=== PATIENT | female | born 1985 | race Hispanic/Latino ===

== ENCOUNTER 2017-11-03 16:50 | Emergency (ER) | payer OTHER ==
[2017-11-03 18:02] LABS: ALT (SGPT) 21 U/L (8-55); AST (SGOT) 16 U/L (5-34); Albumin 4.1 g/dL (3.5-5.0); Alkaline Phosphatase 77 U/L (40-150); Anion Gap 15 mmol/L (10-20); BUN (Urea Nitrogen) 10 mg/dL (7.0-18.7); Bilirubin, Total 0.3 mg/dL (0.2-1.2); Calc. Creatinine Clearance 0 mL/min (70-130); Calcium 9.7 mg/dL (7.8-10.44); Carbon Dioxide 25 mmol/L (22-29); Chloride 100 mmol/L (98-107); Estimated GFR-MDRD Greater than 90; Globulin 3.7 g/dL (2.4-3.5); Glucose 247 mg/dL (70-105); Potassium 3.9 mmol/L (3.5-5.1); Protein, Total 7.8 g/dL (6.0-8.3); Sodium 136 mmol/L (136-145)
[2017-11-03 18:12] LABS: #Basophils 0.1 thou/uL (0.0-0.2); #Eosinphils 0.1 thou/uL (0.0-0.7); #Lymphocytes 2.2 thou/uL (1.20-3.40); #Monocytes 0.5 thou/uL (0.11-0.59); #Neutrophils 4.7 thou/uL (1.40-6.50); %Basophils 0.9 % (0.0-1.0); %Eosinophils 1.8 % (0.0-10.0); %Lymphocytes 28.8 % (21.0-51.0); %Neutrophils 62.4 % (42.0-75.0); Hemoglobin 13.6 g/dL (12.0-16.0); Large Platelets SLIGHT; MDiff Complete? YES; Mean Corpuscular Hemoglobin 26.3 pg (27.0-31.0); Mean Corpuscular Volume 82.3 fl (81.0-99.0); Mean Platelet Volume 12.8 fL (7.4-10.4); PLT Morphology Comment Appears Adequate; Platelet Count 205 thou/uL (130-400); RBC Distribution Width 12.5 % (11.5-14.5); RBC Morphology Normal; Red Blood Cell (RBC) Count 5.15 mill/uL (4.20-5.40); White Blood Cell (WBC) Count 7.5 thou/uL (4.8-10.8)
== END 2017-11-03 18:22 | disposition home or self-care (01) ==
LOC: SCSER 16:50
DX: L03.811 Cellulitis of head [any part, except face] (principal); R59.0 Localized enlarged lymph nodes; E11.9 Type 2 diabetes mellitus without complications; Z79.84 Long term (current) use of oral hypoglycemic drugs
CPT/HCPCS: 80053; 85025; 99283

== ENCOUNTER 2018-02-03 07:52 | Emergency (ER) | payer OTHER ==
[2018-02-03] MEDS ORDERED: Ondansetron HCl/PF 4 MG/2 ML Vial ONE (08:07)
[2018-02-03 08:27] LABS: #Eosinphils 0.1 thou/uL (0.0-0.7); #Lymphocytes 0.9 thou/uL (1.20-3.40); #Monocytes 0.5 thou/uL (0.11-0.59); #Neutrophils 9.6 thou/uL (1.40-6.50); %Basophils 0.3 % (0.0-1.0); %Eosinophils 0.5 % (0.0-10.0); %Lymphocytes 8.5 % (21.0-51.0); %Monocytes 4.7 % (0.0-10.0); %Neutrophils 86.1 % (42.0-75.0); Hemoglobin 13.7 g/dL (12.0-16.0); Mean Corpuscular HGB CONC 32.5 g/dL (32.0-36.0); Mean Corpuscular Hemoglobin 27.2 pg (27.0-31.0); Mean Corpuscular Volume 83.7 fl (81.0-99.0); Platelet Count 166 thou/uL (130-400); Red Blood Cell (RBC) Count 5.03 mill/uL (4.20-5.40); White Blood Cell (WBC) Count 11.1 thou/uL (4.8-10.8)
[2018-02-03 08:34] LABS: ALT (SGPT) 23 U/L (8-55); AST (SGOT) 18 U/L (5-34); Alkaline Phosphatase 75 U/L (40-150); Anion Gap 13 mmol/L (10-20); BUN (Urea Nitrogen) 15 mg/dL (7.0-18.7); Bilirubin, Total 0.4 mg/dL (0.2-1.2); Calc. Creatinine Clearance 0 mL/min (70-130); Carbon Dioxide 23 mmol/L (22-29); Chloride 105 mmol/L (98-107); Estimated GFR-MDRD Greater than 90; Globulin 3.6 g/dL (2.4-3.5); Glucose 162 mg/dL (70-105); Lipase 22 U/L (8-78); Potassium 3.8 mmol/L (3.5-5.1); Protein, Total 7.6 g/dL (6.0-8.3); Sodium 137 mmol/L (136-145)
[2018-02-03 09:09] LABS: Pregnancy Test - Urine (BHCG) Negative (Negative); Pregu Control Background? CLEAR/WHITE (CLR/WHITE); Pregu Control Bar Appear? YES (CONTROL BAR); Specific Gravity 1.015 (1.002-1.036)
[2018-02-03 09:32] LABS: Bilirubin Negative (Negative); Blood, Urine Negative (Negative); Clarity Clear (Clear); Glucose, Urine (Dipstick) Negative (Negative); Leukocyte Negative (Negative); Nitrite Negative (Negative); Protein, Urine (Dipstick) 30 mg/dL (Neg-Trace); Specific Gravity, Urine 1.015 (1.005-1.030); Urobilinogen 0.2 mg/dL (0.2-1.0); pH, Urine 7.5 (5.0-9.0)
[2018-02-03 09:35] LABS: RBC/HPF 0-3 HPF (0-3); Squamous Epithelial 0-3 HPF (0-3); WBC/HPF 0-3 HPF (0-3)
[2018-02-03 09:36] LABS: Bacteria/HPF None Seen HPF (None Seen)
== END 2018-02-03 09:38 | disposition home or self-care (01) ==
LOC: SCSER 07:52
DX: R11.2 Nausea with vomiting, unspecified (principal); R19.7 Diarrhea, unspecified; E11.9 Type 2 diabetes mellitus without complications; Z79.84 Long term (current) use of oral hypoglycemic drugs
CPT/HCPCS: 36416; 80053; 81001; 81025; 83690; 85025; 96361; 96374; J2405

== ENCOUNTER 2018-04-15 08:46 | Outpatient (CLI) | payer OTHER ==
--- NOTE | 2018-04-15 10:32 | MRI ---
MRI CERVICAL SPINE WITHOUT CONTRAST: Date: 04/15/18 HISTORY: Cervical radiculopathy. COMPARISON: None. TECHNIQUE: Cervical spine MRI is performed without contrast. Multisequential, multiplanar imaging is performed. FINDINGS: There is T1 marrow signal and hypointensity of the cervical vertebra. Correlate for anemia or marrow infiltrative process. Intrinsic T1 and T2 hyperintensity with associated STIR hyperintensity at C5, c ompatible with a hemangioma. Incompletely evaluated left Level II lymph nodes, best demonstrated on t he sagittal images. Visualized brain parenchyma, cervicomedullary junction, cervical cord, and the upper thoracic cord mckeon ve a normal size and signal intensity. No significant STIR hyperintensity to suggest vertebral body edema or ligamentous injury. C2-C3: No significant disc osteophyte complex. No significant central canal stenosis. Neural foramina are pa tent bilaterally. C3-C4: No significant disc osteophyte complex. No significant central canal stenosis. Degenerative changes o f the right uncovertebral joint results in mild right foraminal narrowing. Left neural foramen is pat ent. C4-C5: There is a central/left and right subarticular disc osteophyte complex. Ventral subarachnoid space is effaced. There is moderate central canal stenosis. No abnormal signal intensity in the cord. There i s cord deformity. Mild right foraminal narrowing due to degenerative change of the uncovertebral join t. Left neural foramen is patent. C5-C6: There is a central/left paracentral disc osteophyte complex with resultant moderate to severe central canal stenosis. Deformity of the left hemicord, without obvious T2 hyperintensity in the cord. Mild right foraminal narrowing due to degenerative change of the uncovertebral joint. Minimal left foramin al narrowing due to degenerative change of the uncovertebral joint. C6-C7: There is a central disc osteophyte complex that abuts the thecal sac. There is mild central canal fredrick nosis. Neural foramina are patent bilaterally. C7-T1: No significant disc osteophyte complex. No significant central canal stenosis. Neural foramina are pa tent. IMPRESSION: 1. Moderate to severe central canal stenosis at C5-C6. Moderate central canal stenosis at C4-C5. The re is associated cord deformity without abnormal signal intensity in the cord. 2. Varying degrees of foraminal stenosis as above. 3. Nonspecific, enlarged left Level II lymph nodes. Nonemergent postcontrast soft tissue neck CT is recommended. 4. T1 marrow signal hypointensity. Correlate for anemia or a marrow infiltrative process. CODE T. POS: [facility]
== END 2018-04-15 08:47 | disposition home or self-care (01) ==
LOC: MRI 08:46
PROVIDERS: ATTEND Family Medicine
DX: M54.12 Radiculopathy, cervical region (principal); M48.02 Spinal stenosis, cervical region; G95.89 Other specified diseases of spinal cord; M99.81 Other biomechanical lesions of cervical region; R59.0 Localized enlarged lymph nodes; R93.7 Abnormal findings on diagnostic imaging of other parts of musculoskeletal system
CPT/HCPCS: 72141

== ENCOUNTER 2018-06-11 07:40 | Outpatient (CLI) | payer OTHER ==
[2018-06-11] MEDS ORDERED: Iopamidol 370 76% 100 ML VIAL ONE (09:00)
--- NOTE | 2018-06-11 09:51 | CT ---
CT OF THE NECK: DATE: 06/11/18. COMPARISON: None. HISTORY: Lymphadenopathy, abnormal MRI of the cervical spine. TECHNIQUE: Serial axial CT imaging obtained at 2 mm intervals from the skull base to the lung apices with IV con trast. Coronal and sagittal reformatted imaging obtained. FINDINGS: The visualized paranasal sinuses/mastoid air cells appear well aerated. The retroantral fat and parapharyngeal fat appear clear bilaterally. The parotid and submandibular g lands are unremarkable. There is nonspecific symmetric enlargement of the palatine tonsils. The epiglottis and preepiglottic fat, hyoid bone, thyroid cartilage, cricoid cartilage, and level of the glottis appears unremarkable . The thyroid gland appears grossly unremarkable as well. The visualized lung apices appear unremarkable. Scattered nonenlarged bilateral subcentimeter level I lymph nodes are noted. Lymph nodes within level II measure up to 1.1 cm short axis dimension on the right and up to 1 cm melina rt axis dimension on the left, mildly enlarged. There are bilateral lymph nodes at the junction of l evel II and level III measuring 8 mm short axis dimension on right and 9 mm short axis dimension on l eft, nonenlarged. No lymphadenopathy is seen in the posterior triangle/level V. The imaged osseous structures demonstrate no worrisome lytic or blastic lesions. There is midline po sterior osteophyte formation and disk space narrowing at C5-6. IMPRESSION: Mild cervical adenopathy within level II bilaterally and symmetric enlargement of the palatine tonsil s suggesting nonspecific lymphoid hyperplasia. Findings may be reactive in nature. Followup advised as clinically warranted. POS: [facility]
== END 2018-06-11 07:41 | disposition home or self-care (01) ==
LOC: SCSCT 07:40
PROVIDERS: ATTEND Family Medicine
DX: R59.0 Localized enlarged lymph nodes (principal)
CPT/HCPCS: 70492